=== PATIENT | male | born 1945 | race Caucasian/White ===

== ENCOUNTER 2017-05-09 13:54 | Emergency (ER) | payer MEDICARE ==
[2017-05-09 14:28] VITALS: TEMP 99.1
--- NOTE | 2017-05-09 14:37 | ED.PDOC ---
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 Occurred: yesterday Pain - Lower Extremity: mild: Right Knee Method of Injury: other - chronic knee pain Improving Factors: rest Worsening Factors: movement Associated Symptoms: none Allergies/Adverse Reactions: Allergies NO KNOWN ALLERGY Allergy (Verified 05/09/17 14:41) Home Medications: Ambulatory Orders Lisinopril 20 mg PO BEDTIME #30 tab 05/09/17 Tramadol HCl 50 mg PO BEDTIME #20 tab 05/09/17 amLODIPine BESYLATE [Norvasc] 10 mg PO ACBK #60 tab 05/09/17 Review of Systems - Review of Systems Musculoskeletal: States: see HPI, joint pain - right knee Unable to Obtain Due To: condition, other - 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 Past Medical History (General) - Patient Medical History Hx Stroke: No Hx Dementia: No Hx Cardiac Disorders: No Hx Congestive Heart Failure: No Hx Cancer: Yes - skin Surgical History: no surgical history - Social History Hx Tobacco Use: No Hx Chewing Tobacco Use: No Hx Physical Abuse: No Hx Emotional Abuse: No - Activities of Daily Living Patient Lives Alone: Yes Grooming Ability: Independent Eating (Feeding) Ability: Independent Toileting Ability: Independent Family Medical History - Family History Father Family History: Unknown Mother Family History: No Known Physical Exam - Physical Exam General Appearance: Alert, Comfortable, No apparent distress Eyes, Ears, Nose, Throat: normal ENT inspection Neck: non-tender, supple Cardiovascular/Respiratory: regular rate, rhythm, no M/R/G, normal peripheral pulses Gastrointestinal/Abdominal: non-tender, no organomegaly Back: no CVA tenderness, no vertebral tenderness Thigh/Hip: non-tender Leg: non-tender Knee: pain - along tibial line medially right Ankle: non-tender Foot: non-tender Neuro/Tendon: normal sensation, normal motor functions, no evidence tendon injury, other - ambulatory Mental Status: alert, oriented x 3 Skin: rash - right side face arms Progress - Progress Progress: 05/09/17 14:41 Vital Signs - 24 hr 05/09/17 14:12 Temperature 99.1 F Pulse Rate [ 74 left brachial] Respiratory 20 Rate Blood Pressure 234/119 [left brachial] O2 Sat by Pulse 95 Oximetry 05/09/17 17:07 BP-176/93 - Results/Orders Results/Orders: Laboratory Results - last 24 hr 05/09/17 05/09/17 05/09/17 14:58 14:58 14:58 WBC 4.2 L RBC 4.49 L Hgb 13.6 L Hct 39.8 L MCV 88.5 MCH 30.2 MCHC 34.3 RDW 13.9 Plt Count 268 MPV 7.9 Absolute Neuts (auto) 2.70 Absolute Lymphs (auto) 1.00 Absolute Monos (auto) 0.40 Absolute Eos (auto) 0.20 Absolute Basos (auto) 0.00 Neutrophils % 63.3 Lymphocytes % 23.3 Monocytes % 8.5 Eosinophils % 3.7 Basophils % 1.2 Sodium 136 Potassium 3.4 L Chloride 100 L Carbon Dioxide 28 Anion Gap 11.4 L BUN 11 Creatinine 0.88 BUN/Creatinine Ratio 12.5 Random Glucose 103 Serum Osmolality 271.6 L Uric Acid 3.7 Calcium 9.3 Total Bilirubin 1.1 H AST 15 ALT 10 Alkaline Phosphatase 88 Serum Total Protein 7.8 Albumin 4.1 Globulin 3.7 H Albumin/Globulin Ratio 1.1 Departure - Departure Clinical Impression: Right medial knee pain, Developmental non-verbal disorder, Actinic dermatitis Bursitis of right knee Qualifiers: Knee bursitis location: suprapatellar bursitis Qualified Code(s): M70.51 - Other bursitis of knee, right knee Hypertension Qualifiers: Hypertension type: unspecified Qualified Code(s): I10 - Essential (primary) hypertension Time of Disposition: 17:12 Disposition: Discharge to Home or Self Care Condition: Fair Departure Forms: ED Discharge - Pt. Copy, Patient Portal Self Enrollment Prescriptions: amLODIPine BESYLATE [Norvasc] 10 mg PO ACBK #60 tab Lisinopril 20 mg PO BEDTIME #30 tab Tramadol HCl 50 mg PO BEDTIME #20 tab Home Medications: Ambulatory Orders Lisinopril 20 mg PO BEDTIME #30 tab 05/09/17 Tramadol HCl 50 mg PO BEDTIME #20 tab 05/09/17 amLODIPine BESYLATE [Norvasc] 10 mg PO ACBK #60 tab 05/09/17 Additional Instructions: NEED TO SIGN UP WITH PRIMARY MD BOB [phone]
[2017-05-09] MEDS ORDERED: LISINOPRIL 10 MG TAB PO ONE (14:42)
[2017-05-09] MEDS ORDERED: amLODIPine BESYLATE 5 MG TAB PO ONE (14:42)
--- NOTE | 2017-05-09 15:55 | RAD ---
EXAM DESCRIPTION: Right knee, 3 radiographs CLINICAL HISTORY: Right knee pain FINDINGS/ IMPRESSION: Osteopenia. No fracture or focal osteochondral lesion. No lytic or blastic bony lesion Moderate suprapatellar joint effusion. No advanced arthrosis. Small patellofemoral osteophytes. Small enthesophyte at the quadriceps tendon attachment Electronically signed by: Robbie Carranza MD 05/09/2017 3:54 PM CDT
[2017-05-09] MEDS ORDERED: LABETALOL INJ 5 MG/ML VIAL IV ONE (16:29)
[2017-05-09] MEDS ORDERED: ACETAMINOPHEN 500 MG TAB PO ONE (16:43)
[2017-05-09 17:40] VITALS: O2SAT 97
[2017-05-09 17:41] VITALS: BP 176/93
== END 2017-05-09 17:20 | disposition home or self-care (01) ==
LOC: ER 13:54
DX: M70.51 Other bursitis of knee, right knee (principal); L57.8 Other skin changes due to chronic exposure to nonionizing radiation; I10 Essential (primary) hypertension; X32.XXXA Exposure to sunlight, initial encounter; Y92.9 Unspecified place or not applicable; F80.9 Developmental disorder of speech and language, unspecified